=== PATIENT | female | born 1960 | race Caucasian/White ===

== ENCOUNTER 2018-12-10 15:06 | Emergency (ER) | payer OTHER ==
[2018-12-10 15:41] VITALS: BMI 24.3
--- NOTE | 2018-12-10 16:27 | PDOC ---
History of Present Illness - General Chief Complaint: Pain, Acute Stated Complaint: LWER ABD PAIN / BACK PAIN Time Seen by Provider: 12/10/18 16:27 - History of Present Illness Initial Comments: 58yo F with PMH of HLD, Migraines, nephrolithiasis, hysterectomy, asthma presenting with dysuria x 4 days. Patient also endorses urinary frequency, but denies hematuria. She describes the dysuria as "burning." Patient has suprapubic tenderness and bilateral flank pain, rated 10/10 and constant. She says this feels different from the kidney stone she had two years ago. Denies nausea or vomiting. Upon review of symptoms, patient endorsed having chest pain. She describes is as a "pressure" and it started while she was sweeping. She rates it 6-7/10 and radiating to her left shoulder and the left side of her neck. She has never had pain like this before. Patient is a 1ppd smoker x 35 years. Denies history of any heart problems. Mother had an PR at age 42. No hemoptysis, no recent surgical history, no recent immobilization, no hormone use, no history of DVT or PE. Denies fevers, chills, or shortness of breath. Past History - Past Medical History Allergies/Adverse Reactions: Allergies Allergy/AdvReac Type Severity Reaction Status Date / Time No Known Allergies Allergy Verified 12/10/18 15:39 Home Medications: Ambulatory Orders NK [No Known Home Medication] 12/10/18 - Suicide/Smoking/Psychosocial Hx Smoking History: Current some day smoker Have you smoked in the past 12 months: Yes Number of Cigarettes Smoked Daily: 16 Information on smoking cessation initiated: No Review of Systems - Review of Systems Comments:: Constitutional: no fever, no chills HEENT: no throat pain, no dysphagia Cardiovascular: +chest pain, no palpitations Respiratory: no cough, no shortness of breath Gastrointestinal: +abdominal pain, no nausea Genitourinary: +dysuria, +frequency Musculoskeletal: no myalgia, no arthralgia Skin: no rash, no itching Neurologic: +headache, no dizziness *Physical Exam - Vital Signs Last Vital Signs Temp Pulse Resp BP Pulse Ox 98.2 F 81 19 126/83 97 12/10/18 15:39 12/10/18 15:39 12/10/18 15:39 12/10/18 15:39 12/10/18 15:39 - Physical Exam Comments: General: Awake, alert, and fully oriented, in no acute distress Head: No signs of trauma Eyes: EOMI, sclera anicteric ENT: Moist mucus membranes Neck: Normal ROM, supple Lungs: Lungs clear, Normal breath sounds Cardio: Regular rhythm, S1 and S2 present Abdomen: Tender to palpation most focal to the suprapubic region. Soft, nondistended. No guarding, no rebound, no masses. +bilateral CVA tenderness Extremities: Normal range of motion, Distal pulses present SKIN: Warm, Dry, normal turgor Neurologic: Cranial nerves II through XII grossly intact. Normal speech Moderate Sedation - Procedure Monitoring Vital Signs: Procedure Monitoring Vital Signs Temperature 98.2 F 12/10/18 15:39 Pulse Rate 81 12/10/18 15:39 Respiratory Rate 19 12/10/18 15:39 Blood Pressure 126/83 12/10/18 15:39 O2 Sat by Pulse Oximetry (%) 97 12/10/18 15:39 ED Treatment Course - LABORATORY CBC & Chemistry Diagram: 12/10/18 17:15 12/10/18 17:15 Medical Decision Making - Medical Decision Making 58yo F with PMH of HLD, Migraines, nephrolithiasis, hysterectomy, asthma presenting with dysuria x 4 days. Chest pain DDX including but not limited to ACS, PNA, PTX, PE, MSK Dysuria DDX including but not limited to UTI, pyelonephritis, nephrolithiasis, cystitis UA/UCx to evaluate urinary symptoms Cardiac workup to evaluate chest pain, even though patient's main concern is for her urinary symptoms Low suspicion for PE given no SOB or tachycardia and no other risk factor other than age 1g Ofirmev for pain No leukocytosis or anemia Tpn negative EKG: rate 57, QTc 457, Sinus bradycardia, No ST d/e HEART score is 3 (given 1 point for age and 2 points for risk factors of HLD/ Smoking/FH) Patient's back pain and suprapubic tenderness somewhat alleviated, now 4/10 UA with 1 WBC and trace LE, lower suspicion for infection Decision made to order CT Spiral- renal stone to evaluate for kidney stone 12/10/18 18:[address] Spiral- renal stone Patient signed out to Dr. Kitchen and night team 12/10/18 19:14 *DC/Admit/Observation/Transfer Diagnosis at time of Disposition: Dysuria - Discharge Dispostion Disposition: HOME Condition at time of disposition: Good - Referrals Referrals: Biju Vick MD [Staff Physician] - - Patient Instructions Printed Discharge Instructions: DI for Dysuria -- Adult Additional Instructions: You were seen in the emergency room today for pain with urination. The blood test, urine test and CT scan were normal. You most likely have bladder spasms. I recommend that you make an appointment with your primary care doctor and perhaps get a referral to a urologist. Keep the appointment that you have for December 14. If you can get it sooner that would be better. You can take Tylenol for the pain as needed. Come back to the emergency room if pain gets worse, you have blood in the urine , you develop fever, you are unable to urinate or if any new concerning symptom develops. Thank you Print Language: GREENLANDIC - Post Discharge Activity
--- NOTE | 2018-12-10 16:30 | PDOC ---
Attending Attestation - HPI HPI: This patient is a 58 year old Romanian-speaking female with PMHx of HLD, migraines, kidney stones, and fibromyalgia, who presents with 4 days of lower abdominal pain, flank pain, dysuria, frequency, urgency, and urinary retention. Patient states that she has been using the restroom once per hour. She states that this does not feel like her past kidney stones. She states that her abdominal pain feels like its coming from her bladder. Patient also endorses 1 day of chest pain yesterday that began while she was sweeping, is unable to describe the kind of pain, but states that it radiates to her left sided neck and shoulder and rates 6-7/10 on pain scale. She states that she usually experiences this kind of pain while cleaning so she hasnt thought much of it and her primary concern for todays visit is the urinary symptoms. Denies any shortness of breath, fever, chills, nausea, vomiting. Denies any recent travel or immobilization. Family Hx: Mother from [place] at age 42. Social Hx: Smokes 35 pack per year. Surgical Hx: s/p total hysterectomy (15 yrs ago) PCP: Dr. Bustillo ([facility]) - Physicial Exam PE: GENERAL: Awake, alert, and fully oriented, in no acute distress HEAD: No signs of trauma EYES: PERRLA, EOMI, sclera anicteric, conjunctiva clear ENT: Auricles normal inspection, hearing grossly normal, nares patent, oropharynx clear without exudates. Moist mucosa NECK: Normal ROM, supple, no lymphadenopathy, JVD, or masses LUNGS: Breath sounds equal, clear to auscultation bilaterally. No wheezes, and no crackles HEART: Regular rate and rhythm, normal S1 and S2, no murmurs, rubs or gallops ABDOMEN: Soft, RUQ and suprapubic tenderness to palpation, normoactive bowel sounds. No guarding, no rebound. No masses. EXTREMITIES: Normal range of motion, no edema. No clubbing or cyanosis. No cords, erythema, or tenderness NEUROLOGICAL: Cranial nerves II through XII grossly intact. Normal speech, normal gait SKIN: Warm, Dry, normal turgor, no rashes or lesions noted. 12/10/18 17:45 <Ana Rosa Palacio - Last Filed: 12/10/18 17:47> - Resident Resident Name: Lucrecia Phoenix - Medical Decision Making 12/10/18 17:56 Pt presents to the ED complaining of suprapubic pain, flank pain and dysuria, along with non specific chest pain that is associated with cleaning. Differential includes UTI, nephrolithiasis, less likely diverticulosis or other intraabdominal pathology. Will check labs and UA. If no sign of UTI on labs, will check CT abdomen to evaluate for renal stone or other intraabdominal pathology. <Kary Veronica - Last Filed: 12/10/18 18:02> Attestations - Attestations 12/10/18 17:46 Documentation prepared by Ana Rosa Palacio, acting as medical physicist for Kary Veronica MD. <Ana Rosa Palacio - Last Filed: 12/10/18 17:47>
[2018-12-10] MEDS ORDERED: ACETAMINOPHEN 1000 MG/100 ML VIAL (NON FORMULARY) IVPB ONE (17:06)
[2018-12-10] MEDS ORDERED: ACETAMINOPHEN INJECTION 100 ML IVPB ONE (17:09)
[2018-12-10 17:31] LABS: BASO % 0.8 % (0-2.0); EOS % 2.3 % (0-4.5); HEMATOCRIT 42.6 % (32.4-45.2); HEMOGLOBIN 14.7 GM/dL (10.7-15.3); MCH 32.6 pg (25.7-33.7); MCHC 34.5 g/dl (32.0-36.0); MEAN CELL VOLUME 94.5 fl (80-96); MEAN PLT VOLUME 7.5 fl (7.5-11.1); MONO % 4.7 % (3.8-10.2); NEUT % 49.2 % (42.8-82.8); PLATELET COUNT 239 K/MM3 (134-434); RBC 4.51 M/mm3 (3.60-5.2); RDW 12.7 % (11.6-15.6); WHITE BLOOD COUNT 9.2 K/mm3 (4.0-10.0)
[2018-12-10 17:40] LABS: URINE APPEARANCE CLEAR; URINE BILIRUBIN NEGATIVE (<2.0 mg/dL); URINE COLOR YELLOW; URINE GLUCOSE (UA) NEGATIVE (NEGATIVE); URINE KETONE NEGATIVE (NEGATIVE); URINE LEUK ESTERASE TRACE (NEGATIVE); URINE NITRITE NEGATIVE (NEGATIVE); URINE PROTEIN NEGATIVE (NEGATIVE)
[2018-12-10 17:45] LABS: EPI CELLS RARE /HPF (FEW); URINE MUCUS FEW
[2018-12-10 18:12] LABS: ALBUMIN 3.6 g/dl (3.4-5.0); ALK PHOS 102 U/L (45-117); ANION GAP 3 MMOL/L (8-16); BILIRUBIN,TOTAL 0.2 mg/dL (0.2-1); BLOOD UREA NITROGEN 17 mg/dL (7-18); CALCIUM 8.6 mg/dL (8.5-10.1); CHLORIDE 107 mmol/L (98-107); CO2 30 mmol/L (21-32); CREATININE 0.7 mg/dL (0.55-1.3); GLUCOSE,RANDOM 84 mg/dL (74-106); POTASSIUM 4.6 mmol/L (3.5-5.1); SGOT/AST 28 U/L (15-37); SGPT/ALT 38 U/L (13-61); SODIUM 140 mmol/L (136-145); TOT PROT 6.9 g/dl (6.4-8.2)
--- NOTE | 2018-12-10 19:29 | PDOC ---
*Physical Exam - Vital Signs Last Vital Signs Temp Pulse Resp BP Pulse Ox 98.2 F 81 19 126/83 97 12/10/18 15:39 12/10/18 15:39 12/10/18 15:39 12/10/18 15:39 12/10/18 15:39 ED Treatment Course - LABORATORY CBC & Chemistry Diagram: 12/10/18 17:15 12/10/18 17:15 - ADDITIONAL ORDERS Additional order review: Laboratory Results 12/10/18 12/10/18 12/10/18 17:15 17:15 17:15 Sodium 140 Potassium 4.6 Chloride 107 Carbon Dioxide 30 Anion Gap 3 L BUN 17 Creatinine 0.7 Creat Clearance w eGFR > 60 Random Glucose 84 Calcium 8.6 Total Bilirubin 0.2 AST 28 ALT 38 Alkaline Phosphatase 102 Creatine Kinase 143 Troponin I < 0.02 Total Protein 6.9 Albumin 3.6 Lipase 166 Urine Color Yellow Urine Appearance Clear Urine pH 6.0 Ur Specific [place] 1.026 Urine Protein Negative Urine Glucose (UA) Negative Urine Ketones Negative Urine Blood Negative Urine Nitrite Negative Urine Bilirubin Negative Urine Urobilinogen 2.0 H Ur Leukocyte Esterase Trace Urine WBC (Auto) 1 Urine RBC (Auto) 1 Ur Epithelial Cells Rare Urine Mucus Few 12/10/18 17:15 RBC 4.51 MCV 94.5 MCHC 34.5 RDW 12.7 MPV 7.5 Neutrophils % 49.2 Lymphocytes % 43.0 H Monocytes % 4.7 Eosinophils % 2.3 Basophils % 0.8 - Medications Given in the ED: ED Medications Discontinued Medications Generic Name Dose Route Start Last Admin Trade Name Freq PRN Reason Stop Dose Admin Acetaminophen 1,000 mg 12/10/18 17:06 12/10/18 17:25 Ofirmev Injection - IVPB 12/10/18 17:07 1,000 mg ONCE ONE Administration Medical Decision Making - Medical Decision Making 12/10/18 19:28 Pt signed out to me by Dr. Phoenix 58yo F with PMH of HLD, Migraines, nephrolithiasis, hysterecomy, asthma presenting with dysuria x 4 days with urinary frequency, suprapubic tenderness, bilateral flank pain. -labs wnl -UA negative -EKG and trop normal -Pt received Tylenol, is feeling better pending CT and CXR 12/10/18 20:38 CT negative for stones or any acute process. Bladder normal. phleboliths in pelvis. Pt refusing CXR. Labs wnl, no uti, normal CT. will dc home. Pt has pmd. has appt in 3 days. Pt understands and agrees to plan. given return precautions *DC/Admit/Observation/Transfer Diagnosis at time of Disposition: Dysuria - Discharge Dispostion Disposition: HOME Condition at time of disposition: Good Decision to Admit order: No - Referrals Referrals: Biju Vick MD [Staff Physician] - - Patient Instructions Printed Discharge Instructions: DI for Dysuria -- Adult Additional Instructions: You were seen in the emergency room today for pain with urination. The blood test, urine test and CT scan were normal. You most likely have bladder spasms. I recommend that you make an appointment with your primary care doctor and perhaps get a referral to a urologist. Keep the appointment that you have for December 14. If you can get it sooner that would be better. You can take Tylenol for the pain as needed. Come back to the emergency room if pain gets worse, you have blood in the urine , you develop fever, you are unable to urinate or if any new concerning symptom develops. Thank you Print Language: MALTESE - Post Discharge Activity
[2018-12-10 20:50] VITALS: BP 146/70; PULSE 71; TEMP 99.1
--- NOTE | 2018-12-13 13:52 | EKG ---
Test Reason : Blood Pressure : / mmHG Vent. Rate : 057 BPM Atrial Rate : 057 BPM P-R Int : 170 ms QRS Dur : 082 ms QT Int : 470 ms P-R-T Axes : 048 -13 020 degrees QTc Int : 457 ms SINUS BRADYCARDIA OTHERWISE NORMAL ECG NO PREVIOUS ECGS AVAILABLE Confirmed by MD Clay, Deejay ([id number]) on 12/13/2018 1:51:48 PM Referred By: Confirmed By:Deejay Williamson MD
== END 2018-12-10 20:51 | disposition home or self-care (01) ==
LOC: JER 15:06
PROC: 3E033NZ Introduction of Analgesics, Hypnotics, Sedatives into Peripheral Vein, Percutaneous Approach (ICD-10-PCS; principal; 2018-12-10)
DX: R51 Headache (principal); R30.0 Dysuria; Z87.442 Personal history of urinary calculi; E78.00 Pure hypercholesterolemia, unspecified; J45.909 Unspecified asthma, uncomplicated; Z90.710 Acquired absence of both cervix and uterus
CPT/HCPCS: 36415; 74176-TC; 80053; 81003; 81015; 82550; 83690; 84484; 85025; 87086; 93005; 93010; 96374; 99284-25; J0131

== ENCOUNTER 2018-12-17 16:41 | Emergency (ER) | payer OTHER ==
[2018-12-17 16:56] VITALS: TEMP 98.2; BMI 24.3
[2018-12-17] MEDS ORDERED: PHENAZOPYRIDINE HCL 100 MG TABLET (FP) PO ONE (17:21)
--- NOTE | 2018-12-17 17:23 | PDOC ---
History of Present Illness - General Chief Complaint: Pain, Acute Stated Complaint: PELVIC/BACK PAIN Time Seen by Provider: 12/17/18 17:04 History Source: Patient Exam Limitations: No Limitations Past History - Travel Traveled outside of the country in the last 30 days: No Close contact w/someone who was outside of country & ill: No - Past Medical History Allergies/Adverse Reactions: Allergies Allergy/AdvReac Type Severity Reaction Status Date / Time No Known Allergies Allergy Verified 12/17/18 16:52 Home Medications: Ambulatory Orders Cephalexin Monohydrate [Keflex -] 500 mg PO BID #14 capsule 12/17/18 COPD: No - Suicide/Smoking/Psychosocial Hx Smoking History: Smoker current status UNK Have you smoked in the past 12 months: Yes Number of Cigarettes Smoked Daily: 16 Review of Systems - Review of Systems Able to Perform ROS?: Yes Comments:: 12/17/18 19:04 CONSTITUTIONAL: Absent: fever, chills, diaphoresis, generalized weakness, malaise, loss of appetite HEENT: Absent: rhinorrhea, nasal congestion, throat pain, throat swelling, difficulty swallowing, mouth swelling, ear pain, eye pain, visual Changes CARDIOVASCULAR: Absent: chest pain, loss of consciousness, palpitations, irregular heart rate, peripheral edema RESPIRATORY: Absent: cough, shortness of breath, dyspnea with exertion, orthopnea, wheezing, stridor, hemoptysis GASTROINTESTINAL: Present: abdominal discomfort Absent: abdominal pain, abdominal distension, nausea, vomiting, diarrhea, constipation, melena, hematochezia GENITOURINARY: Present: dysuria Absent: frequency, urgency, hesitancy, hematuria, flank pain, genital pain MUSCULOSKELETAL: Absent: myalgia, arthralgia, joint swelling SKIN: Absent: rash, itching, pallor HEMATOLOGIC/IMMUNOLOGIC: Absent: easy bleeding, easy bruising, lymphadenopathy, frequent infections ENDOCRINE: Absent: unexplained weight gain, unexplained weight loss, heat intolerance, cold intolerance NEUROLOGIC: Absent: headache, focal weakness or paresthesias, dizziness, unsteady gait, seizure, mental status changes, bladder or bowel incontinence PSYCHIATRIC: Absent: anxiety, depression, suicidal or homicidal ideation, hallucinations. Is the patient limited Belgian proficient: No *Physical Exam - Vital Signs Last Vital Signs Temp Pulse Resp BP Pulse Ox 98.2 F 66 16 143/86 100 12/17/18 16:54 12/17/18 16:54 12/17/18 16:54 12/17/18 16:54 12/17/18 16:54 - Physical Exam Comments: 12/17/18 19:07 GENERAL: Well developed, well nourished. Awake and alert. No acute distress. HEENT: Normocephalic, atraumatic. PERRLA, EOMI. No conjunctival pallor. Sclera are non- icteric. Moist mucous membranes. Oropharynx is clear. NECK: Supple. Full ROM. No JVD. Carotid pulses 2+ and symmetric, without bruits. No thyromegaly. No lymphadenopathy. CARDIOVASCULAR: Regular rate and rhythm. No murmurs, rubs, or gallops. Distal pulses are 2+ and symmetric. PULMONARY: No evidence of respiratory distress. Lungs clear to auscultation bilaterally. No wheezing, rales or rhonchi. ABDOMINAL: Suprapubic discomfort with associated discomfort in the R and L adnexa. Soft. Non-tender. Non-distended. No rebound or guarding. No organomegaly. Normoactive bowel sounds. MUSCULOSKELETAL Normal range of motion at all joints. No bony deformities or tenderness. (+) L CVA tenderness. EXTREMITIES: No cyanosis. No clubbing. No edema. No calf tenderness. SKIN: Warm and dry. Normal capillary refill. No rashes. No jaundice. NEUROLOGICAL: Alert, awake, appropriate. Cranial nerves 2-12 intact. No deficits to light touch and temperature in face, upper extremities and lower extremities. No motor deficits in the in face, upper extremities and lower extremities. Normoreflexic in the upper and lower extremities. Normal speech. Toes are down- going bilaterally. Gait is normal without ataxia. PSYCHIATRIC: Cooperative. Good eye contact. Appropriate mood and affect. Moderate Sedation - Procedure Monitoring Vital Signs: Procedure Monitoring Vital Signs Temperature 98.2 F 12/17/18 16:54 Pulse Rate 66 12/17/18 16:54 Respiratory Rate 16 12/17/18 16:54 Blood Pressure 143/86 12/17/18 16:54 O2 Sat by Pulse Oximetry (%) 100 12/17/18 16:54 ED Treatment Course - LABORATORY CBC & Chemistry Diagram: 12/17/18 17:37 12/17/18 17:37 Medical Decision Making - Medical Decision Making 12/17/18 19:17 HPI: Patient is a 58-year-old female with no past medical history who presents to the emergency department today for dysuria, flank pain and generalized abdominal pain. Patient was evaluated 1 week ago with similar symptoms, for which she received a CAT scan of her abdomen and pelvis. This scan was grossly unremarkable. She was sent home to follow-up with her primary care for abdominal pain. Today she states that her pain has not resolved and actually gotten worse. She notes dysuria and left flank pain. Denies fevers, chills, chest pain, shortness of breath, nausea, vomiting or diarrhea, frequency and urgency. A/P Pt presents for vague abdominal pain P: Ultrasound pelvis, bladder, and kidney Labs, urine, IV placed Dispo pending labs and IV Sign out given to DELIA Weaver *DC/Admit/Observation/Transfer Diagnosis at time of Disposition: RAKEL (acute kidney injury) UTI (urinary tract infection) Qualifiers: Urinary tract infection type: acute cystitis Hematuria presence: without hematuria Qualified Code(s): N30.00 - Acute cystitis without hematuria - Discharge Dispostion Disposition: HOME Condition at time of disposition: Fair - Prescriptions Prescriptions: Cephalexin Monohydrate [Keflex -] 500 mg PO BID #14 capsule - Referrals - Patient Instructions Additional Instructions: Rest, drink lots of fluids: Teas, water, soups Avoid contact with others until fevers and symptoms resolved Lots of handwashing and good hygiene Continue [id number] medications for symptomatic relief Tylenol for fever and pain Continue all of antibiotics until completed Followup with private physician in one week for repeat urinalysis/reevaluation Return to emergency department for worsened symptoms, fevers, dehydration [place], purnima muchos lquidos: Ts, agua, sopas Evite el contacto con otros hasta que las fiebres y los sntomas se resuelvan Un montn de lavado de gabe y buena higiene Contine los medicamentos sin receta para el alivio sintomtico Tylenol para la fiebre y el dolor Continuar todos los antibiticos hasta completarse Seguimiento con mdico privado en rui semana para repetir anlisis de orina / reevaluacin Volver al servicio de urgencias por sntomas empeorados, fiebres, deshidratacin - Post Discharge Activity
[2018-12-17] MEDS ORDERED: PHENAZOPYRIDINE HCL 100 MG TABLET (FP) ONE (17:27)
[2018-12-17 17:44] LABS: BASO % 0.6 % (0-2.0); EOS % 1.8 % (0-4.5); HEMOGLOBIN 14.8 GM/dL (10.7-15.3); LYMPH % 39.1 % (8-40); MCH 33.2 pg (25.7-33.7); MCHC 35.1 g/dl (32.0-36.0); MEAN CELL VOLUME 94.6 fl (80-96); MEAN PLT VOLUME 7.5 fl (7.5-11.1); MONO % 3.7 % (3.8-10.2); NEUT % 54.8 % (42.8-82.8); PLATELET COUNT 216 K/MM3 (134-434); RBC 4.44 M/mm3 (3.60-5.2); RDW 12.6 % (11.6-15.6); WHITE BLOOD COUNT 9.7 K/mm3 (4.0-10.0)
[2018-12-17 18:06] LABS: ALBUMIN 3.6 g/dl (3.4-5.0); ALK PHOS 104 U/L (45-117); ANION GAP 4 MMOL/L (8-16); BILIRUBIN,TOTAL 0.2 mg/dL (0.2-1); BLOOD UREA NITROGEN 19 mg/dL (7-18); CALCIUM 9.1 mg/dL (8.5-10.1); CHLORIDE 109 mmol/L (98-107); CO2 27 mmol/L (21-32); CREATININE 1.2 mg/dL (0.55-1.3); GLUCOSE,RANDOM 100 mg/dL (74-106); POTASSIUM 4.5 mmol/L (3.5-5.1); SGOT/AST 27 U/L (15-37); SGPT/ALT 45 U/L (13-61); SODIUM 140 mmol/L (136-145); TOT PROT 7.1 g/dl (6.4-8.2)
--- NOTE | 2018-12-17 19:50 | PDOC ---
*Physical Exam - Vital Signs Last Vital Signs Temp Pulse Resp BP Pulse Ox 98.2 F 66 16 143/86 100 12/17/18 16:54 12/17/18 16:54 12/17/18 16:54 12/17/18 16:54 12/17/18 16:54 ED Treatment Course - LABORATORY CBC & Chemistry Diagram: 12/17/18 17:37 12/17/18 17:37 - ADDITIONAL ORDERS Additional order review: Laboratory Results 12/17/18 12/17/18 12/17/18 17:37 17:37 17:37 Sodium 140 Potassium 4.5 Chloride 109 H Carbon Dioxide 27 Anion Gap 4 L BUN 19 H Creatinine 1.2 Creat Clearance w eGFR 46.47 Random Glucose 100 Lactic Acid 0.8 Calcium 9.1 Total Bilirubin 0.2 AST 27 ALT 45 Alkaline Phosphatase 104 Total Protein 7.1 Albumin 3.6 Lipase 176 12/17/18 17:37 RBC 4.44 MCV 94.6 MCHC 35.1 RDW 12.6 MPV 7.5 Neutrophils % 54.8 Lymphocytes % 39.1 Monocytes % 3.7 L Eosinophils % 1.8 Basophils % 0.6 - Medications Given in the ED: ED Medications Discontinued Medications Generic Name Dose Route Start Last Admin Trade Name Freq PRN Reason Stop Dose Admin Phenazopyridine HCl 100 mg 12/17/18 17:21 12/17/18 17:41 Pyridium - PO 12/17/18 17:22 100 mg ONCE ONE Administration Progress Note - Progress Note Progress Note: Received signout from DEBBIE Baird Briefly this is a 58-year-old woman. Past medical history her for evaluation of dysuria, flank pain and generalized abdominal pain. Patient full workup approximately one week ago including CAT scan versus unremarkable. Patient now with worsening pain. Laboratory testing notable for a creatinine of 1.2 which is an increase from 0.71 week ago. GFR 46.47 which is decreased from >60 last week. Patient is pending ultrasound imaging at this time. Likely admission for RAKEL. Medical Decision Making - Medical Decision Making 12/17/18 21:00 Urinalysis has positive nitrites. Ultrasound as read by imaging parts counter sales person: 1. Mild prominence of the bilateral been collecting system which could represent mild hydronephrosis. 2. Prior hysterectomy. 3. Nonvisualization of the bilateral ovaries. I will discharge patient home with antibiotics to follow-up with her primary doctor. Patient is encouraged to remain well-hydrated. *DC/Admit/Observation/Transfer Diagnosis at time of Disposition: RAKEL (acute kidney injury) UTI (urinary tract infection) Qualifiers: Urinary tract infection type: acute cystitis Hematuria presence: without hematuria Qualified Code(s): N30.00 - Acute cystitis without hematuria - Discharge Dispostion Disposition: HOME Condition at time of disposition: Fair Decision to Admit order: No - Prescriptions Prescriptions: Cephalexin Monohydrate [Keflex -] 500 mg PO BID #14 capsule - Referrals - Patient Instructions Additional Instructions: Rest, drink lots of fluids: Teas, water, soups Avoid contact with others until fevers and symptoms resolved Lots of handwashing and good hygiene Continue [id number] medications for symptomatic relief Tylenol for fever and pain Continue all of antibiotics until completed Followup with private physician in one week for repeat urinalysis/reevaluation Return to emergency department for worsened symptoms, fevers, dehydration purnima [place] muchos lquidos: Ts, magen, nuriaas Evite el contacto con otros hasta que las fiebres y los sntomas se resuelvan Un montn de lavado de gabe y buena higiene Contine los medicamentos sin receta para el alivio sintomtico Tylenol para la fiebre y el dolor Continuar todos los antibiticos hasta completarse Seguimiento con mdico privado en rui semana para repetir anlisis de orina / reevaluacin Volver al servicio de urgencias por sntomas empeorados, fiebres, deshidratacin - Post Discharge Activity
[2018-12-17 20:16] LABS: URINE APPEARANCE CLEAR; URINE BILIRUBIN NEGATIVE (<2.0 mg/dL); URINE COLOR AMBER; URINE GLUCOSE (UA) NEGATIVE (NEGATIVE); URINE KETONE NEGATIVE (NEGATIVE); URINE LEUK ESTERASE NEGATIVE (NEGATIVE); URINE NITRITE POSITIVE (NEGATIVE); URINE PROTEIN NEGATIVE (NEGATIVE); URINE UROBILINOGEN 4.0 E.U/dl mg/dL (0.2-1.0)
[2018-12-17 20:17] LABS: EPI CELLS FEW /HPF (FEW); URINE BACTERIA RARE /hpf (NONE SEEN); URINE MUCUS RARE
[2018-12-17 21:33] VITALS: BP 137/78; PULSE 70
== END 2018-12-17 21:34 | disposition home or self-care (01) ==
LOC: JER 16:41
DX: N30.00 Acute cystitis without hematuria (principal); N17.9 Acute kidney failure, unspecified
CPT/HCPCS: 36415; 76775-TC; 76856-TC; 80053; 81003; 81015; 83605; 83690; 85025; 87086; 99281-25